=== PATIENT | male | born 2000 | race Caucasian/White ===

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

== ENCOUNTER 2021-10-18 15:35 | Emergency (ER) | payer BC ==
[~2021-10-18] VITALS: Ht 185.4 cm; Wt 59.1 kg
[2021-10-18 15:43] VITALS: BP 139/81; TEMP 98.3
[2021-10-18 16:38] VITALS: PULSE 102
== END 2021-10-18 16:39 | disposition home or self-care (01) ==
LOC: COL.ER 15:35
DX: N43.3 Hydrocele, unspecified (principal)

== ENCOUNTER 2021-11-26 18:48 | Emergency (ER) | payer BC ==
[~2021-11-26] VITALS: Ht 185.4 cm; Wt 63.6 kg
[2021-11-26 19:07] VITALS: TEMP 97.1
[2021-11-26 20:37] LABS: COLLECTION METHOD CLEAN CATCH
[2021-11-26 20:50] LABS: PH 6.5 (5.0-8.5); SQUAMOUS EPITHELIAL None Seen /hpf (0-10); URINE APPEARANCE Clear (CLEAR/HAZY); URINE BACTERIA None Seen /hpf (NONE SEEN); URINE BLOOD Negative (NEGATIVE); URINE COLOR Straw (YELLOW); URINE GLUCOSE Negative (NEGATIVE); URINE KETONE Negative (NEGATIVE); URINE NITRATE Negative (NEGATIVE); URINE PROTEIN(semi-quant) Negative (NEGATIVE); URINE RBC None Seen /hpf (0-2); URINE UROBILINOGEN 0.2 E.U/dL (0.2-1.0)
[2021-11-26 21:13] VITALS: BP 128/63; PULSE 72
== END 2021-11-26 21:13 | disposition home or self-care (01) ==
LOC: COL.ER 18:48
PROVIDERS: Nurse Practitioner
DX: N50.812 Left testicular pain (principal)